=== PATIENT | female | born 1990 | race Caucasian/White ===

== ENCOUNTER 2016-02-27 16:35 | Emergency (ER) | payer OTHER ==
--- NOTE | 2016-02-27 18:28 | DIAGNOSTIC IMAGING REPORT ---
PROCEDURE: CT ABDOMEN/PELVIS W/O CONTRAST INDICATION: Hematuria and right flank pain. History of kidney stones. TECHNIQUE: Noncontrast axial images with sagittal and coronal reformations. COMPARISON: Comparison made to CT abdomen and pelvis on 11/12/2012. FINDINGS: ABDOMEN: There is mild right hydronephrosis and hydroureter secondary to a 2.5 mm calculus just above the right ureteral vesicle junction. There is a 0.5 mm nonobstructing calculus in the lower pole right kidney. There are two small 0.5 mm nonobstructing calculi in the mid lower pole left kidney. Left kidney and ureter are otherwise normal. Gallbladder, liver, spleen, pancreas, and aorta are normal. Bowel pattern is normal. Appendix is not clearly identified, but no evidence of inflammatory process. PELVIS: There is a 2.5 cm right paraovarian cyst (incidental finding) Uterus and adnexal structures are otherwise normal. No evidence of free fluid. IMPRESSION: 1. There is mild right hydronephrosis hydroureter secondary to a 2.5 mm calculus located just above the right ureteral vesicle junction. 2. There is a 0.5 mm nonobstructing calculus in the right kidney. 3. There are two 0.5 mm nonobstructing calculi in the left kidney. 4. There is a 2.5 cm right paraovarian cyst (incidental finding). 5. Findings discussed with KURT Ashton. All CT scans at this facility use dose modulation, iterative reconstruction, and/or weight-based dosing when appropriate to reduce radiation dose to as low as reasonably achievable.
--- NOTE | 2016-02-27 18:46 | ED NURSING NOTES ---
Clinical Report - Nurses [facility] [address] [place] [address] 02/27/2016 16:36 Patient: ADDIE PEARSON TRIAGE Triage time 16:41. Acuity: LEVEL 3. Chief Complaint: URGENCY and FREQUENCY and RIGHT-SIDED FLANK PAIN. --16:45 Joleen Gallegos R.N. 16:41 02/27/16. BP: 115/72. HR: 69. RR: 18. O2 saturation: 98%. Temp: 98.1 F. Pain level now: 09/14. --16:45 Joleen Gallegos R.N. Weight: 68 kg stated. Height/Length: 66 inches Per Patient. BMI: 24.2. --16:43 Joleen Gallegos R.N. Medications Naproxen Oral. Tylenol Oral. --16:42 Joleen Gallegos R.N. Allergies No Known Drug Allergy. --16:42 Joleen Gallegos R.N. History Arrived by private vehicle. Historian: patient. Primary physician (none, used to be [facility]). Treatment DIRECTOR OF PUBLIC SAFETY: None. SURGERY HX: No history of previous surgery. SOCIAL HX: Light tobacco smoker (cigarette)- less than 1/2 a pack per day. No alcohol use or drug use. FALL RISK ASSESSMENT: Fall risk assessment completed. No fall risk identified. FUNCTIONAL ASSESSMENT: Functional assessment: no impairments noted. LEARNING NEEDS ASSESSMENT: The learning needs assessment revealed no barriers. --16:45 Joleen Gallegos R.N. Onset. (3 days ago). --16:48 Joleen Gallegos R.N. PROBLEMS: Cough. Chest Wall Pain. Sinusitis. Migraine Headache. Nephrolithiasis. Pyelonephritis. . UTI - Urinary Tract Infection. Urinary Calculi. Diarrhea. Abdominal Pain. Gastroesophageal Reflux Disease. --16:43 Joleen Gallegos R.N. Interventions ID band on patient. To room. --16:45 Gallegos, Joleen, R.N. PHYSICAL ASSESSMENT 16:45 02/27/16. GENERAL / NEURO / PSYCH: Alert. Oriented X 4. Appears in pain. RESPIRATORY: Respirations not labored. --16:45 Joleen Gallegos R.N. NURSING PROGRESS NOTES 16:45 02/27/16. Patient identifiers checked. Call light placed in reach. Bed placed in lowest position. Patient ready for evaluation. --16:45 Joleen Gallegos R.N. 16:55 02/27/2016 Site #1 started via IV in the right antecubital space with an 20g angiocath, with aseptic technique and good blood return; one attempt. Blood drawn: rainbow set. Labeled in the presence of the patient and sent to the lab. Saline lock flushed with 10 mL saline. --17:05 Joleen Gallegos R.N. <<STRICKEN ENTRY-- 17:03 02/27/2016 Toradol IVP 30 mg given over 2 minute(s) via site #1. Allergies verified and confirmed 5 rights. --17:06 Joleen Gallegos R.N. --END STRIKE>> Correction. --17:06 Joleen Gallegos R.N. 17:05 02/27/2016 Toradol IVP 30 mg given over 2 minute(s) via site #1. Allergies verified and confirmed 5 rights. --17:06 Joleen Gallegos R.N. 17:07 02/27/2016 PHENERGAN (Promethazine HCl) IVP 12.5 mg given over 2 minute(s) via site #1. Allergies verified and confirmed 5 rights. (diluted in 10 mls NS). --17:07 Joleen Gallegos R.N. 18:31 02/27/2016 Started bag #1 1000 mL IV Fluids IV NS (Saline); bolus of 1000 mL wide open via site #1. Allergies verified and confirmed 5 rights. IV patency established. IV site checked: no pain, redness, or swelling. IV flushed thoroughly pre- and post-medication administration. --18:31 Ayanna Lee 18:32 02/27/2016 Started 2 gm of Ceftriaxone IVPB in bag #1 50 mL; at 100 mL/hr over 30 minute(s) via site #1; Allergies verified and confirmed 5 rights. --18:32 Ayanna Lee 19:04 02/27/16. BP: 90/54. HR: 46. RR: 16. O2 saturation: 100%. --19:04 Ayanna Lee 19:34 02/27/2016 IV Fluids IV NS Discontinued: bag #1 completed upon discharge. Total amount infused: 1000 mL. IV patency established. IV site checked: no pain, redness, or swelling. IV flushed thoroughly. --19:34 Ayanna Lee 19:35 02/27/2016 Ceftriaxone IVPB Discontinued: bag #1 completed upon discharge. Total amount infused: 50 mL. IV patency established. IV site checked: no pain, redness, or swelling. IV flushed thoroughly. --19:35 Ayanna Lee. DISPOSITION / DISCHARGE 19:35 02/27/2016 Site #1 removed upon discharge. Pressure dressing applied. --19:35 Ayanna Lee Departure time: 1934. Condition at departure: improved and stable. No learning barriers present. Discharge instructions provided and reviewed with the patient. Reviewed medication(s). Patient verbalized understanding. Written instructions provided in [place]. The patient was discharged by the physician health information assistant. She was discharged home and accompanied by endless track vehicle supervisor. She left the Emergency Department ambulatory and via private vehicle. Campaign Consultant driving. --19:36 Ayanna Lee 19:35 02/27/16. BP: 95/54. HR: 48. RR: 18. O2 saturation: 98%. Pain level now 5/10. --19:36 Ayanna Lee. Locked/Released at 02/27/2016 19:37 by Ayanna Lee,
--- NOTE | 2016-02-27 18:46 | ED NURSING NOTES ---
Clinical Report - Nurses [facility] [address] [place] [address] 02/27/2016 16:36 Patient: ADDIE PEARSON TRIAGE Triage time 16:41. Acuity: LEVEL 3. Chief Complaint: URGENCY and FREQUENCY and RIGHT-SIDED FLANK PAIN. --16:45 Joleen Gallegos R.N. 16:41 02/27/16. BP: 115/72. HR: 69. RR: 18. O2 saturation: 98%. Temp: 98.1 F. Pain level now: 09/14. --16:45 Joleen Gallegos R.N. Weight: 68 kg stated. Height/Length: 66 inches Per Patient. BMI: 24.2. --16:43 Joleen Gallegos R.N. Medications Naproxen Oral. Tylenol Oral. --16:42 Joleen Gallegos R.N. Allergies No Known Drug Allergy. --16:42 Joleen Gallegos R.N. History Arrived by private vehicle. Historian: patient. Primary physician (none, used to be Ainsley). Treatment TOW DRIVER: None. SURGERY HX: No history of previous surgery. SOCIAL HX: Light tobacco smoker (cigarette)- less than 1/2 a pack per day. No alcohol use or drug use. FALL RISK ASSESSMENT: Fall risk assessment completed. No fall risk identified. FUNCTIONAL ASSESSMENT: Functional assessment: no impairments noted. LEARNING NEEDS ASSESSMENT: The learning needs assessment revealed no barriers. --16:45 Joleen Gallegos R.N. Onset. (3 days ago). --16:48 Joleen Gallegos R.N. PROBLEMS: Cough. Chest Wall Pain. Sinusitis. Migraine Headache. Nephrolithiasis. Pyelonephritis. . UTI - Urinary Tract Infection. Urinary Calculi. Diarrhea. Abdominal Pain. Gastroesophageal Reflux Disease. --16:43 Joleen Gallegos R.N. Interventions ID band on patient. To room. --16:45 Gallegos, Joleen, R.N. PHYSICAL ASSESSMENT 16:45 02/27/16. GENERAL / NEURO / PSYCH: Alert. Oriented X 4. Appears in pain. RESPIRATORY: Respirations not labored. --16:45 Joleen Gallegos R.N. NURSING PROGRESS NOTES 16:45 02/27/16. Patient identifiers checked. Call light placed in reach. Bed placed in lowest position. Patient ready for evaluation. --16:45 Joleen Gallegos R.N. 16:55 02/27/2016 Site #1 started via IV in the right antecubital space with an 20g angiocath, with aseptic technique and good blood return; one attempt. Blood drawn: rainbow set. Labeled in the presence of the patient and sent to the lab. Saline lock flushed with 10 mL saline. --17:05 Joleen Gallegos R.N. <<STRICKEN ENTRY-- 17:03 02/27/2016 Toradol IVP 30 mg given over 2 minute(s) via site #1. Allergies verified and confirmed 5 rights. --17:06 Joleen Gallegos R.N. --END STRIKE>> Correction. --17:06 Joleen Gallegos R.N. 17:05 02/27/2016 Toradol IVP 30 mg given over 2 minute(s) via site #1. Allergies verified and confirmed 5 rights. --17:06 Joleen Gallegos R.N. 17:07 02/27/2016 PHENERGAN (Promethazine HCl) IVP 12.5 mg given over 2 minute(s) via site #1. Allergies verified and confirmed 5 rights. (diluted in 10 mls NS). --17:07 Joleen Gallegos R.N. 18:31 02/27/2016 Started bag #1 1000 mL IV Fluids IV NS (Saline); bolus of 1000 mL wide open via site #1. Allergies verified and confirmed 5 rights. IV patency established. IV site checked: no pain, redness, or swelling. IV flushed thoroughly pre- and post-medication administration. --18:31 Ayanna Lee 18:32 02/27/2016 Started 2 gm of Ceftriaxone IVPB in bag #1 50 mL; at 100 mL/hr over 30 minute(s) via site #1; Allergies verified and confirmed 5 rights. --18:32 Ayanna Lee 19:04 02/27/16. BP: 90/54. HR: 46. RR: 16. O2 saturation: 100%. --19:04 Ayanna Lee 19:34 02/27/2016 IV Fluids IV NS Discontinued: bag #1 completed upon discharge. Total amount infused: 1000 mL. IV patency established. IV site checked: no pain, redness, or swelling. IV flushed thoroughly. --19:34 Ayanna Lee 19:35 02/27/2016 Ceftriaxone IVPB Discontinued: bag #1 completed upon discharge. Total amount infused: 50 mL. IV patency established. IV site checked: no pain, redness, or swelling. IV flushed thoroughly. --19:35 Ayanna Lee. DISPOSITION / DISCHARGE 19:35 02/27/2016 Site #1 removed upon discharge. Pressure dressing applied. --19:35 Ayanna Lee Departure time: 1934. Condition at departure: improved and stable. No learning barriers present. Discharge instructions provided and reviewed with the patient. Reviewed medication(s). Patient verbalized understanding. Written instructions provided in [place]. The patient was discharged by the physician technical administrative assistant. She was discharged home and accompanied by grain mill products inspector. She left the Emergency Department ambulatory and via private vehicle. Cloud Solutions Architect driving. --19:36 Ayanna Lee 19:35 02/27/16. BP: 95/54. HR: 48. RR: 18. O2 saturation: 98%. Pain level now 5/10. --19:36 Ayanna Lee. Locked/Released at 02/27/2016 19:37 by Ayanna Lee,
--- NOTE | 2016-02-27 18:46 | ED CLINICAL REPORT ---
Clinical Report - Physicians/Mid Levels [facility] [address] [place] [address] 02/27/2016 16:36 [id number] Time Seen: 17:34 Feb 27 2016. Arrived- By private vehicle. Historian- patient. HISTORY OF PRESENT ILLNESS Chief Complaint: FLANK PAIN. It is described as "pain" and it is described as located in the right flank. 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 (Flank pain over the last 2-3 days, with fevers, nausea no emesis. No diarrhea. History of similar. Denies any recent travel. No recent antibiotics, history of the same with nephrolithiasis. No hematochezia . pain constant, not relieved by anything.). REVIEW OF SYSTEMS No constipation, black stools, difficulty with urination, pain with urination or sore throat. No blurred vision, chest pain or difficulty breathing. All systems otherwise negative, except as recorded above. SOCIAL HISTORY Smoker- current status unknown. No alcohol use or drug use. ADDITIONAL NOTES The nursing notes have been reviewed. PHYSICAL EXAM Vital Signs: 02/27/2016 16:41 BP: 115/72. HR: 69. RR: 18. O2 saturation: 98%. Temp: 98.1 F. Pain level now: 8/10. Appearance: Alert. Eyes: Eyes normal inspection. ENT: Ears normal. Neck: Normal inspection. Neck supple. CVS: Normal heart rate and rhythm. Heart sounds normal. Rhythm normal. No cardiac murmur. Respiratory: No respiratory distress. Breath sounds normal. No decreased air movement. Abdomen: Mild tenderness in the right side of the abdomen. No organomegaly. No mass. No obesity, rebound tenderness, femoral pulse deficit or guarding. The bowel sounds are not abnormal. Back: Normal inspection. No CVA tenderness. Skin: Skin warm. Normal skin color. LABS, X-RAYS, AND EKG Abdominal CT: IMPRESSION: 1. There is mild right hydronephrosis hydroureter secondary to a 2.5 mm calculus located just above the right ureteral vesicle junction. 2. There is a 0.5 mm nonobstructing calculus in the right kidney. 3. There are two 0.5 mm nonobstructing calculi in the left kidney. 4. There is a 2.5 cm right paraovarian cyst (incidental finding). 5. Findings discussed with KURT Ashton. All CT scans at this facility use dose modulation, iterative reconstruction, and/or weight-based dosing when appropriate to reduce radiation dose to as low as reasonably achievable. Electronically Final signed by:Nikolay Lindsey MD 02/27/2016 6:27:51 PM. Laboratory Tests: UA-Culture if indicated: (MAKENZIE: 02/27/2016 16:50) ( [facility] 02/27/2016 17:55) Final results Test Result Flag Units (Reference) URINE COLOR YELLOW URINE APPEARANCE CLEAR URINE GLUCOSE NEGATIVE (NEGATIVE) URINE BILIRUBIN NEGATIVE (NEGATIVE) URINE KETONE NEGATIVE (NEGATIVE) URINE SPECIFIC GRAVITY <= 1.005 L (1.010-1.030) URINE PH 6.5 (5.0-8.0) URINE PROTEIN NEGATIVE (NEGATIVE) URINE UROBILINOGEN 0.2 EU/dL (0.2-1.0) URINE NITRITE NEGATIVE (NEGATIVE) URINE BLOOD TRACE-LYSED (NEGATIVE) URINE LEUK ESTERASE NEGATIVE (NEGATIVE) URINE RBC 1-3 rbc/hpf (0-1) URINE WBC 0-1 wbc/hpf (0-1) URINE EPITHELIAL CELLS >15 EPI/hpf (0-5) URINE BACTERIA MANY (4+) (NONE SEEN) Urine: (MAKENZIE: 02/27/2016 16:50) ( [facility] 02/27/2016 17:28) Final results Test Result Flag Units (Reference) URINE NEGATIVE CBC w Diff: (MAKENZIE: 02/27/2016 16:56) ( [facility] 02/27/2016 17:14) Final results Test Result Flag Units (Reference) WHITE BLOOD COUNT 8.1 K/uL (4.5-11.5) RED BLOOD COUNT 5.35 H M/uL (4.00-5.20) HEMOGLOBIN 15.2 gm/dL (12.0-16.0) HEMATOCRIT 46.6 H % (36.0-46.0) MEAN CELL VOLUME 87 fL (80-100) MEAN CORPUSCULAR HGB 28 pg (26-34) MEAN CORPUSCULAR HGB CONC 33 g/dL (31-37) RED CELL DISTRIBUTION WIDTH 13.5 % (11.6-14.8) PLATELET COUNT 252 K/uL (150-400) NEUTROPHIL % 59.5 % (50-75) LYMPH % 31.3 % (25-40) MONO % 6.8 % (3-14) EOSINOPHIL % 1.7 % (0-4) BASOPHIL % 0.7 % (0-2) CMP: (MAKENZIE: 02/27/2016 16:56) ( [facility] 02/27/2016 17:31) Final results Test Result Flag Units (Reference) GLUCOSE 70 mg/dL (70-110) BUN 8 mg/dL (7-18) CREATININE 0.8 mg/dL (0.6-1.3) Estimated GFR >60 mL/min Estimated GFR- >60 mL/min Note: Persistent reduction over 3 months in eGFR<60 mL/min/1.73 m2 defines CKD. Patients with eGFR values>=60 mL/min/1.73 m2 may also have CKD if evidence ofpersistent proteinuria. Additional information may be foundat www.kidney.org. SODIUM 145 mmol/L (136-145) POTASSIUM 3.3 L mmol/L (3.5-5.1) CHLORIDE 105 mmol/L (98-107) CARBON DIOXIDE 30 mmol/L (21-32) CALCIUM 9.1 mg/dL (8.5-10.1) TOTAL PROTEIN 7.9 g/dL (6.4-8.2) ALBUMIN 4.8 g/dL (3.3-5.0) BILIRUBIN, TOTAL 0.5 mg/dL (0.0-1.0) ALKALINE PHOSPHATASE 61 U/L (46-116) AST (SGOT) 11 L U/L (15-37) ALT (SGPT) 26 U/L (12-78) . PROGRESS AND PROCEDURES Course of Care: pt in the er with toradol that has relieved her pain . Pt is afebrile. mild pain anterior. Urine sample is contaminated with some signs of infectious process, and some hematuria . Afebrile. Patient is stable. Patient/family counseled. Differential Diagnosis: I considered gastritis, acute appendicitis, diverticulitis, urinary tract infection, cystitis, prostatitis, ureterolithiasis, urinary obstruction, ovarian cyst, ovarian torsion, , ectopic , pelvic inflammatory disease and pelvic abscess as a possible cause of abdominal pain in this patient. This is a partial list of diagnoses considered. Disposition: Discharged. Condition: good. CLINICAL IMPRESSION Right renal colic with calculus with urinary tract infection. INSTRUCTIONS Drink plenty of fluids. ([facility] urology: [phone]). Warnings: Further evaluation is necessary. Prescription Medications: Hydrocodone/APAP 5mg / 325mg: take 1 orally every 6 hours as needed for pain. Dispense fifteen (15). No refill. Zofran (orally disintegrating tablets) 4 mg: take 1 orally every 6 hours for 3 days as needed for nausea. Dispense ten (10). No refill. Substitution is permissible. Cephalexin 500 mg: take 1 capsule orally for 10 days. No refill. Flomax 0.4 mg: take 1 orally every 24 hours. Dispense ten (10). No refills. Follow-up: Follow up with your doctor in three days. Understanding of the discharge instructions verbalized by patient. (Electronically signed by Alicja Oakes P.A.-C 02/27/2016 19:39)
--- NOTE | 2016-02-27 18:46 | ED CLINICAL REPORT ---
Clinical Report - Physicians/Mid Levels [facility] [address] [place] [address] 02/27/2016 16:36 [id number] Time Seen: 17:34 Feb 27 2016. Arrived- By private vehicle. Historian- patient. HISTORY OF PRESENT ILLNESS Chief Complaint: FLANK PAIN. It is described as "pain" and it is described as located in the right flank. 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 (Flank pain over the last 2-3 days, with fevers, nausea no emesis. No diarrhea. History of similar. Denies any recent travel. No recent antibiotics, history of the same with nephrolithiasis. No hematochezia . pain constant, not relieved by anything.). REVIEW OF SYSTEMS No constipation, black stools, difficulty with urination, pain with urination or sore throat. No blurred vision, chest pain or difficulty breathing. All systems otherwise negative, except as recorded above. SOCIAL HISTORY Smoker- current status unknown. No alcohol use or drug use. ADDITIONAL NOTES The nursing notes have been reviewed. PHYSICAL EXAM Vital Signs: 02/27/2016 16:41 BP: 115/72. HR: 69. RR: 18. O2 saturation: 98%. Temp: 98.1 F. Pain level now: 8/10. Appearance: Alert. Eyes: Eyes normal inspection. ENT: Ears normal. Neck: Normal inspection. Neck supple. CVS: Normal heart rate and rhythm. Heart sounds normal. Rhythm normal. No cardiac murmur. Respiratory: No respiratory distress. Breath sounds normal. No decreased air movement. Abdomen: Mild tenderness in the right side of the abdomen. No organomegaly. No mass. No obesity, rebound tenderness, femoral pulse deficit or guarding. The bowel sounds are not abnormal. Back: Normal inspection. No CVA tenderness. Skin: Skin warm. Normal skin color. LABS, X-RAYS, AND EKG Abdominal CT: IMPRESSION: 1. There is mild right hydronephrosis hydroureter secondary to a 2.5 mm calculus located just above the right ureteral vesicle junction. 2. There is a 0.5 mm nonobstructing calculus in the right kidney. 3. There are two 0.5 mm nonobstructing calculi in the left kidney. 4. There is a 2.5 cm right paraovarian cyst (incidental finding). 5. Findings discussed with KURT Ashton. All CT scans at this facility use dose modulation, iterative reconstruction, and/or weight-based dosing when appropriate to reduce radiation dose to as low as reasonably achievable. Electronically Final signed by:Nikolay Lindsey MD 02/27/2016 6:27:51 PM. Laboratory Tests: UA-Culture if indicated: (MAKENZIE: 02/27/2016 16:50) ( [facility] 02/27/2016 17:55) Final results Test Result Flag Units (Reference) URINE COLOR YELLOW URINE APPEARANCE CLEAR URINE GLUCOSE NEGATIVE (NEGATIVE) URINE BILIRUBIN NEGATIVE (NEGATIVE) URINE KETONE NEGATIVE (NEGATIVE) URINE SPECIFIC GRAVITY <= 1.005 L (1.010-1.030) URINE PH 6.5 (5.0-8.0) URINE PROTEIN NEGATIVE (NEGATIVE) URINE UROBILINOGEN 0.2 EU/dL (0.2-1.0) URINE NITRITE NEGATIVE (NEGATIVE) URINE BLOOD TRACE-LYSED (NEGATIVE) URINE LEUK ESTERASE NEGATIVE (NEGATIVE) URINE RBC 1-3 rbc/hpf (0-1) URINE WBC 0-1 wbc/hpf (0-1) URINE EPITHELIAL CELLS >15 EPI/hpf (0-5) URINE BACTERIA MANY (4+) (NONE SEEN) Urine: (MAKENZIE: 02/27/2016 16:50) ( [facility] 02/27/2016 17:28) Final results Test Result Flag Units (Reference) URINE NEGATIVE CBC w Diff: (MAKENZIE: 02/27/2016 16:56) ( [facility] 02/27/2016 17:14) Final results Test Result Flag Units (Reference) WHITE BLOOD COUNT 8.1 K/uL (4.5-11.5) RED BLOOD COUNT 5.35 H M/uL (4.00-5.20) HEMOGLOBIN 15.2 gm/dL (12.0-16.0) HEMATOCRIT 46.6 H % (36.0-46.0) MEAN CELL VOLUME 87 fL (80-100) MEAN CORPUSCULAR HGB 28 pg (26-34) MEAN CORPUSCULAR HGB CONC 33 g/dL (31-37) RED CELL DISTRIBUTION WIDTH 13.5 % (11.6-14.8) PLATELET COUNT 252 K/uL (150-400) NEUTROPHIL % 59.5 % (50-75) LYMPH % 31.3 % (25-40) MONO % 6.8 % (3-14) EOSINOPHIL % 1.7 % (0-4) BASOPHIL % 0.7 % (0-2) CMP: (MAKENZIE: 02/27/2016 16:56) ( MsgRcvd 02/27/2016 17:31) Final results Test Result Flag Units (Reference) GLUCOSE 70 mg/dL (70-110) BUN 8 mg/dL (7-18) CREATININE 0.8 mg/dL (0.6-1.3) Estimated GFR >60 mL/min Estimated GFR- >60 mL/min Note: Persistent reduction over 3 months in eGFR<60 mL/min/1.73 m2 defines CKD. Patients with eGFR values>=60 mL/min/1.73 m2 may also have CKD if evidence ofpersistent proteinuria. Additional information may be foundat www.kidney.org. SODIUM 145 mmol/L (136-145) POTASSIUM 3.3 L mmol/L (3.5-5.1) CHLORIDE 105 mmol/L (98-107) CARBON DIOXIDE 30 mmol/L (21-32) CALCIUM 9.1 mg/dL (8.5-10.1) TOTAL PROTEIN 7.9 g/dL (6.4-8.2) ALBUMIN 4.8 g/dL (3.3-5.0) BILIRUBIN, TOTAL 0.5 mg/dL (0.0-1.0) ALKALINE PHOSPHATASE 61 U/L (46-116) AST (SGOT) 11 L U/L (15-37) ALT (SGPT) 26 U/L (12-78) . PROGRESS AND PROCEDURES Course of Care: pt in the er with toradol that has relieved her pain . Pt is afebrile. mild pain anterior. Urine sample is contaminated with some signs of infectious process, and some hematuria . Afebrile. Patient is stable. Patient/family counseled. Differential Diagnosis: I considered gastritis, acute appendicitis, diverticulitis, urinary tract infection, cystitis, prostatitis, ureterolithiasis, urinary obstruction, ovarian cyst, ovarian torsion, , ectopic , pelvic inflammatory disease and pelvic abscess as a possible cause of abdominal pain in this patient. This is a partial list of diagnoses considered. Disposition: Discharged. Condition: good. CLINICAL IMPRESSION Right renal colic with calculus with urinary tract infection. INSTRUCTIONS Drink plenty of fluids. ([facility] urology: [phone]). Warnings: Further evaluation is necessary. Prescription Medications: Hydrocodone/APAP 5mg / 325mg: take 1 orally every 6 hours as needed for pain. Dispense fifteen (15). No refill. Zofran (orally disintegrating tablets) 4 mg: take 1 orally every 6 hours for 3 days as needed for nausea. Dispense ten (10). No refill. Substitution is permissible. Cephalexin 500 mg: take 1 capsule orally for 10 days. No refill. Flomax 0.4 mg: take 1 orally every 24 hours. Dispense ten (10). No refills. Follow-up: Follow up with your doctor in three days. Understanding of the discharge instructions verbalized by patient. (Electronically signed by Alicja Oakes P.A.-C 02/27/2016 19:39)
--- NOTE | 2016-02-27 18:46 | ED ORDER SUMMARY ---
..... Patient: ADDIE PEARSON OrderSheet [facility] VisitID: [id number] [place] [address] 25y, F Registration Date/Time: 02/27/2016 ORDER SHEET Weight: 68.0 kg (stated) Allergies: No Known Drug Allergy GENERAL ORDERS: CBC w Diff Urgent (16:59 02/27/2016 EKoroleva P.A.-C) (Ack 17:03 LMuller) (17:03 LMuller) CMP Urgent (16:59 02/27/2016 EKoroleva P.A.-C) (Ack 17:03 LMuller) (17:03 LMuller) UA-Culture if indicated Urgent (16:59 02/27/2016 EKoroleva P.A.-C) (Ack 17:03 LMuller) (17:03 LMuller) Urine Urgent (16:59 02/27/2016 EKoroleva P.A.-C) (Ack 17:03 LMuller) (17:03 LMuller) CT Abd/Pel wo Cont Urgent (17:32 02/27/2016 EKoroleva P.A.-C) (Ack 17:37 LMuller) (18:13 Sylvia) MEDICATION ORDERS: Phenergan IV 12.5 mg (HIGH ALERT MEDICATION, NOW) (16:59 02/27/2016 EKoroleva P.A.-C) (17:07 LSullivan R.N.) IV FLUIDS: IV Saline Lock (16:58 02/27/2016 LSullivan R.N. verbal order read back to EKoroleva P.A.-C) (17:05 LSullivan R.N.) Toradol IV 30 mg (NOW) (16:59 02/27/2016 EKoroleva P.A.-C) (17:06 LSullivan R.N.) IV Saline Lock (16:59 02/27/2016 EKoroleva P.A.-C) (Cancelled: Other16:59 EKoroleva P.A.-C) IV NS : initial bolus 1000 mL (1000 mL/hr), then 100 mL/hr for X1 (NOW); Carlos (18:23 02/27/2016 Dipti ManuelA.-C) (18:31 [facility]) Ceftriaxone IV 2 gm/50mL (NOW) (18:24 02/27/2016 Dipti An.A.-C) (18:32 [facility]) ORDER SHEET NOTES: [Electronically signed by Ayanna Lee (19:37 02/27/2016)] [Electronically signed by Alicja Oakes P.A.-C (19:39 02/27/2016)] [Electronically locked/signed by Ayanna Lee (19:37 02/27/2016)]
--- NOTE | 2016-02-27 18:46 | ED ORDER SUMMARY ---
..... Patient: ADDIE PEARSON OrderSheet [facility] VisitID: [id number] [place] [address] 25y, F Registration Date/Time: 02/27/2016 ORDER SHEET Weight: 68.0 kg (stated) Allergies: No Known Drug Allergy GENERAL ORDERS: CBC w Diff Urgent (16:59 02/27/2016 EKoroleva P.A.-C) (Ack 17:03 LMuller) (17:03 LMuller) CMP Urgent (16:59 02/27/2016 EKoroleva P.A.-C) (Ack 17:03 LMuller) (17:03 LMuller) UA-Culture if indicated Urgent (16:59 02/27/2016 EKoroleva P.A.-C) (Ack 17:03 LMuller) (17:03 LMuller) Urine Urgent (16:59 02/27/2016 EKoroleva P.A.-C) (Ack 17:03 LMuller) (17:03 LMuller) CT Abd/Pel wo Cont Urgent (17:32 02/27/2016 EKoroleva P.A.-C) (Ack 17:37 LMuller) (18:13 Sylvia) MEDICATION ORDERS: Phenergan IV 12.5 mg (HIGH ALERT MEDICATION, NOW) (16:59 02/27/2016 EKoroleva P.A.-C) (17:07 LSullivan R.N.) IV FLUIDS: IV Saline Lock (16:58 02/27/2016 LSullivan R.N. verbal order read back to EKoroleva P.A.-C) (17:05 LSullivan R.N.) Toradol IV 30 mg (NOW) (16:59 02/27/2016 EKoroleva P.A.-C) (17:06 LSullivan R.N.) IV Saline Lock (16:59 02/27/2016 EKoroleva P.A.-C) (Cancelled: Other16:59 EKoroleva P.A.-C) IV NS : initial bolus 1000 mL (1000 mL/hr), then 100 mL/hr for X1 (NOW); Carlos (18:23 02/27/2016 Dipti ManuelA.-C) (18:31 [facility]) Ceftriaxone IV 2 gm/50mL (NOW) (18:24 02/27/2016 Dipti An.A.-C) (18:32 [facility]) ORDER SHEET NOTES: [Electronically signed by Ayanna Lee (19:37 02/27/2016)] [Electronically signed by Alicja Oakes P.A.-C (19:39 02/27/2016)] [Electronically locked/signed by Ayanna Lee (19:37 02/27/2016)]
--- NOTE | 2016-02-27 19:40 | ED MED RECONCILIATION SUMMARY ---
Patient: ADDIE PERASON Medication Reconciliation Report [facility] VisitID: [id number] [place] [address] 25y, F Registration Date/Time: 02/27/2016 Weight: 68.0 kg Height/Length: 66 in. BMI: 24.2 ALLERGIES: No Known Drug Allergy The patient's Home Medications are listed below: THE FOLLOWING MEDICATIONS NEED TO BE RECONCILED: Naproxen Oral Tylenol Oral The source(s) of the original Home Medication information: Not obtained. The following Medications were given to the patient in the Emergency Department: Toradol [IVP] IVP 30 mg, administered: 02/27/2016 5:05:00 PM PHENERGAN [IVP] IVP 12.5 mg, administered: 02/27/2016 5:07:00 PM IV NS IV Fluids bolus 1000 mL wide open, administered: 02/27/2016 6:31:00 PM Ceftriaxone [IVPB] IVPB bolus 0, then 2 gm 100 mL/hr, administered: 02/27/2016 6:32:00 PM The following Medications were prescribed to the patient: Hydrocodone/APAP 5mg / 325mg: take 1 orally every 6 hours as needed for pain. Dispense fifteen (15). No refill. -- Alicja Oakes, P.A.-C Zofran (orally disintegrating tablets) 4 mg: take 1 orally every 6 hours for 3 days as needed for nausea. Dispense ten (10). No refill. Substitution is permissible. -- Alicja Oakes, P.A.-C Cephalexin 500 mg: take 1 capsule orally for 10 days. No refill. -- Alicja Oakes, P.A.-C Flomax 0.4 mg: take 1 orally every 24 hours. Dispense ten (10). No refills. -- Alicja Oakes, P.A.-C
--- NOTE | 2016-02-27 19:40 | ED DISCHARGE INSTRUCTIONS ---
Patient: ADDIE PEARSON General Instructions [facility] VisitID: [id number] [place] [address] 25y, F Registration Date/Time: 02/27/2016 Right renal colic with calculus with urinary tract infection. INSTRUCTIONS Drink plenty of fluids. ([facility]: [phone]). Warnings: Further evaluation is necessary. Prescription Medications: Hydrocodone/APAP 5mg / 325mg: take 1 orally every 6 hours as needed for pain. Dispense fifteen (15). No refill. Zofran (orally disintegrating tablets) 4 mg: take 1 orally every 6 hours for 3 days as needed for nausea. Dispense ten (10). No refill. Substitution is permissible. Cephalexin 500 mg: take 1 capsule orally for 10 days. No refill. Flomax 0.4 mg: take 1 orally every 24 hours. Dispense ten (10). No refills. Follow-up: Follow up with your doctor in three days. Understanding of the discharge instructions verbalized by patient. ADDITIONAL INFORMATION Kidney Stone (W/ Colic) The sharp cramping pain and nausea/vomiting that you have is due to a small stone which has formed in the kidney and is now passing down a narrow tube (ureter) on its way to your bladder. Once it reaches your bladder, the pain will stop. The stone may pass in your urine stream in one piece. [The size may be 1/16" to 1/4" (1-6mm)]. Or, the stone may also break up into rose marie fragments which you may not even notice. Once you have had a kidney stone, you are at risk for developing another one in the future. Home Care: Drink plenty of fluids (at least 8 to 10 glasses of water a day). Most stones will pass on their own, but may take from a few hours to a few days. Sometimes the stone is too large to pass by itself and special methods will have to be used to remove the stone. Each time you urinate, do so in a jar. Pour the urine from the jar through the strainer and into the toilet. Continue doing this until 24 hours after your pain stops. By then, if there was a kidney stone, it should pass from your bladder. Some stones dissolve into sand-like particles and pass right through the strainer. In that case, you wont ever see a stone. Save any stone that you find in the strainer and bring it to your doctor for analysis. It may be possible to prevent certain types of stones from forming. Therefore, it is important to know what kind of stone you have. Try to stay as active as possible since this will help the stone pass. Do not stay in bed unless your pain prevents you from getting up. You may notice a red, pink or brown color to your urine. This is normal while passing a kidney stone. Follow Up with your doctor or return to this facility if the pain lasts more than 48 hours. Get Prompt Medical Attention if any of the following occur: Pain that is not controlled by the medicine given Repeated vomiting or unable to keep down fluids Weakness, dizziness or fainting Fever of 100.4F (38C) or higher, or as directed by your healthcare provider Passage of solid red or brown urine (can't see through it) or urine with lots of blood clots Unable to pass urine for 8 hours and increasing bladder pressure Bladder Infection,Female (Adult) A bladder infection ("cystitis" or "UTI") usually causes a constant urge to urinate and a burning when passing urine. Urine may be cloudy, smelly or dark. There may be pain in the lower abdomen. A bladder infection occurs when bacteria from the vaginal area enter the bladder opening (urethra). This can occur from sexual intercourse, wearing tight clothing, dehydration and other factors. Home Care: Drink lots of fluids (at least 6-8 glasses a day, unless you must restrict fluids for other medical reasons). This will force the medicine into your urinary system and flush the bacteria out of your body. Avoid sexual intercourse until your symptoms are gone. Avoid caffeine, alcohol and spicy foods. These can irritate the bladder. A bladder infection is treated with antibiotics. You may also be given Pyridium (generic = phenazopyridine) to reduce the burning sensation. This medicine will cause your urine to become a bright orange color. The orange urine may stain clothing. You may wear a pad or panty-liner to protect clothing. Preventing Future Infections: Always wipe from front to back after a bowel movement. Keep the genital area clean and dry. Drink plenty of fluids each day to avoid dehydration. Both sexual partners should wash before intercourse. Urinate right after intercourse to flush out the bladder. Wear cotton underwear and cotton-lined panty hose; avoid tight-fitting pants. If you are on control pills and are having frequent bladder infections, discuss with your doctor. Follow Up: Return to this facility or see your doctor if ALL symptoms are not gone after three days of treatment. Get Prompt Medical Attention if any of the following occur: Fever of 100.4F (38C) or higher, or as directed by your healthcare provider No improvement by the third day of treatment Increasing back or abdominal pain Repeated vomiting; unable to keep medicine down Weakness, dizziness or fainting Vaginal discharge Pain, redness or swelling in the labia (outer vaginal area) Hydrocodone Bitartrate, Acetaminophen Oral tablet What is this medicine? ACETAMINOPHEN; HYDROCODONE (a set a BASIL elda fen; radha droe KOE done) is a pain reliever. It is used to treat mild to moderate pain. How should I use this medicine? Take this medicine by mouth. Swallow it with a full glass of water. Follow the directions on the prescription label. If the medicine upsets your stomach, take the medicine with food or milk. Do not take more than you are told to take. Talk to your vessel builder regarding the use of this medicine in children. This medicine is not approved for use in children. What side effects may I notice from receiving this medicine? Side effects that you should report to your doctor or health home day care provider as soon as possible: allergic reactions like skin rash, itching or hives, swelling of the face, lips, or tongue breathing problems confusion feeling faint or lightheaded, falls stomach pain yellowing of the eyes or skin Side effects that usually do not require medical attention (report to your doctor or health home day care provider if they continue or are bothersome): nausea, vomiting stomach upset What may interact with this medicine? alcohol antihistamines isoniazid medicines for depression, anxiety, or psychotic disturbances medicines for sleep muscle relaxants naltrexone narcotic medicines (opiates) for pain phenobarbital ritonavir tramadol What if I miss a dose? If you miss a dose, take it as soon as you can. If it is almost time for your next dose, take only that dose. Do not take double or extra doses. Where should I keep my medicine? Keep out of the reach of children. This medicine can be abused. Keep your medicine in a safe place to protect it from theft. Do not share this medicine with anyone. Selling or giving away this medicine is dangerous and against the law. Store at room temperature between 15 and 30 degrees C (59 and 86 degrees F). Protect from light. Keep container tightly closed. Throw away any unused medicine after the expiration date. Discard unused medicine and used packaging carefully. Pets and children can be harmed if they find used or lost packages. What should I tell my health care provider before I take this medicine? They need to know if you have any of these conditions: brain tumor Crohn's disease, inflammatory bowel disease, or ulcerative colitis drink more than 3 alcohol-containing drinks per day drug abuse or addiction head injury heart or circulation problems kidney disease or problems going to the bathroom liver disease lung disease, asthma, or breathing problems an unusual or allergic reaction to acetaminophen, hydrocodone, other opioid analgesics, other medicines, foods, dyes, or preservatives or trying to get breast-feeding What should I watch for while using this medicine? Tell your doctor or health home day care provider if your pain does not go away, if it gets worse, or if you have new or a different type of pain. You may develop tolerance to the medicine. Tolerance means that you will need a higher dose of the medicine for pain relief. Tolerance is normal and is expected if you take the medicine for a long time. Do not suddenly stop taking your medicine because you may develop a severe reaction. Your body becomes used to the medicine. This does NOT mean you are addicted. Addiction is a behavior related to getting and using a drug for a non-medical reason. If you have pain, you have a medical reason to take pain medicine. Your doctor will tell you how much medicine to take. If your doctor wants you to stop the medicine, the dose will be slowly lowered over time to avoid any side effects. You may get drowsy or dizzy when you first start taking the medicine or change doses. Do not drive, use machinery, or do anything that may be dangerous until you know how the medicine affects you. Stand or sit up slowly. There are different types of narcotic medicines (opiates) for pain. If you take more than one type at the same time, you may have more side effects. Give your health care provider a list of all medicines you use. Your doctor will tell you how much medicine to take. Do not take more medicine than directed. Call emergency for help if you have problems breathing. The medicine will cause constipation. Try to have a bowel movement at least every 2 to 3 days. If you do not have a bowel movement for 3 days, call your doctor or health home day care provider. Too much acetaminophen can be very dangerous. Do not take Tylenol (acetaminophen) or medicines that contain acetaminophen with this medicine. Many non-prescription medicines contain acetaminophen. Always read the labels carefully. Ondansetron Hydrochloride Oral tablet What is this medicine? ONDANSETRON (on KWADWO se ariella) is used to treat nausea and vomiting caused by chemotherapy. It is also used to prevent or treat nausea and vomiting after surgery. How should I use this medicine? Take this medicine by mouth with a glass of water. Follow the directions on your prescription label. Take your doses at regular intervals. Do not take your medicine more often than directed. Talk to your vessel builder regarding the use of this medicine in children. Special care may be needed. What side effects may I notice from receiving this medicine? Side effects that you should report to your doctor or health home day care provider as soon as possible: allergic reactions like skin rash, itching or hives, swelling of the face, lips or tongue breathing problems dizziness fast or irregular heartbeat feeling faint or lightheaded, falls fever and chills swelling of the hands or feet tightness in the chest Side effects that usually do not require medical attention (report to your doctor or health home day care provider if they continue or are bothersome): constipation or diarrhea headache What may interact with this medicine? Do not take this medicine with any of the following medications: -apomorphine -cisapride -dofetilide -dronedarone -pimozide -thioridazine -ziprasidone This medicine may also interact with the following medications: -carbamazepine -phenytoin -rifampicin -tramadol -other medicines that prolong the QT interval (cause an abnormal heart rhythm) What if I miss a dose? If you miss a dose, take it as soon as you can. If it is almost time for your next dose, take only that dose. Do not take double or extra doses. Where should I keep my medicine? Keep out of the reach of children. Store between 2 and 30 degrees C (36 and 86 degrees F). Throw away any unused medicine after the expiration date. What should I tell my health care provider before I take this medicine? They need to know if you have any of these conditions: heart disease history of irregular heartbeat liver disease low levels of magnesium or potassium in the blood an unusual or allergic reaction to ondansetron, granisetron, other medicines, foods, dyes, or preservatives or trying to get breast-feeding What should I watch for while using this medicine? Check with your doctor or health home day care provider right away if you have any sign of an allergic reaction. Ondansetron Oral disintegrating tablet What is this medicine? ONDANSETRON (on KWADWO se ariella) is used to treat nausea and vomiting caused by chemotherapy. It is also used to prevent or treat nausea and vomiting after surgery. How should I use this medicine? These tablets are made to dissolve in the mouth. Do not try to push the tablet through the foil backing. With dry hands, peel away the foil backing and gently remove the tablet. Place the tablet in the mouth and allow it to dissolve, then swallow. While you may take these tablets with water, it is not necessary to do so. Talk to your vessel builder regarding the use of this medicine in children. Special care may be needed. What side effects may I notice from receiving this medicine? Side effects that you should report to your doctor or health home day care provider as soon as possible: allergic reactions like skin rash, itching or hives, swelling of the face, lips, or tongue breathing problems dizziness fast or irregular heartbeat feeling faint or lightheaded, falls fever and chills swelling of the hands and feet tightness in the chest Side effects that usually do not require medical attention (report to your doctor or health home day care provider if they continue or are bothersome): constipation or diarrhea headache What may interact with this medicine? Do not take this medicine with any of the following medications: -apomorphine -cisapride -dofetilide -dronedarone -pimozide -thioridazine -ziprasidone This medicine may also interact with the following medications: -carbamazepine -phenytoin -rifampicin -tramadol -other medicines that prolong the QT interval (cause an abnormal heart rhythm) What if I miss a dose? If you miss a dose, take it as soon as you can. If it is almost time for your next dose, take only that dose. Do not take double or extra doses. Where should I keep my medicine? Keep out of the reach of children. Store between 2 and 30 degrees C (36 and 86 degrees F). Throw away any unused medicine after the expiration date. What should I tell my health care provider before I take this medicine? They need to know if you have any of these conditions: heart disease history of irregular heartbeat liver disease low levels of magnesium or potassium in the blood an unusual or allergic reaction to ondansetron, granisetron, other medicines, foods, dyes, or preservatives or trying to get breast-feeding What should I watch for while using this medicine? Check with your doctor or health home day care provider as soon as you can if you have any sign of an allergic reaction. You have been given the following additional information: Kidney Stone W/ Colic Bladder Infection, Female (Adult) Hydrocodone Bitartrate, Acetaminophen Oral tablet Ondansetron Hydrochloride Oral tablet Ondansetron Oral disintegrating tablet (Electronically signed by Alicja Oakes P.A.-C 02/27/2016 19:39)
--- NOTE | 2016-02-27 19:40 | ED DISCHARGE INSTRUCTIONS ---
Patient: ADDIE PEARSON General Instructions [facility] VisitID: [id number] [place] [address] 25y, F Registration Date/Time: 02/27/2016 Right renal colic with calculus with urinary tract infection. INSTRUCTIONS Drink plenty of fluids. ([facility]: [phone]). Warnings: Further evaluation is necessary. Prescription Medications: Hydrocodone/APAP 5mg / 325mg: take 1 orally every 6 hours as needed for pain. Dispense fifteen (15). No refill. Zofran (orally disintegrating tablets) 4 mg: take 1 orally every 6 hours for 3 days as needed for nausea. Dispense ten (10). No refill. Substitution is permissible. Cephalexin 500 mg: take 1 capsule orally for 10 days. No refill. Flomax 0.4 mg: take 1 orally every 24 hours. Dispense ten (10). No refills. Follow-up: Follow up with your doctor in three days. Understanding of the discharge instructions verbalized by patient. ADDITIONAL INFORMATION Kidney Stone (W/ Colic) The sharp cramping pain and nausea/vomiting that you have is due to a small stone which has formed in the kidney and is now passing down a narrow tube (ureter) on its way to your bladder. Once it reaches your bladder, the pain will stop. The stone may pass in your urine stream in one piece. [The size may be 1/16" to 1/4" (1-6mm)]. Or, the stone may also break up into rose marie fragments which you may not even notice. Once you have had a kidney stone, you are at risk for developing another one in the future. Home Care: Drink plenty of fluids (at least 8 to 10 glasses of water a day). Most stones will pass on their own, but may take from a few hours to a few days. Sometimes the stone is too large to pass by itself and special methods will have to be used to remove the stone. Each time you urinate, do so in a jar. Pour the urine from the jar through the strainer and into the toilet. Continue doing this until 24 hours after your pain stops. By then, if there was a kidney stone, it should pass from your bladder. Some stones dissolve into sand-like particles and pass right through the strainer. In that case, you wont ever see a stone. Save any stone that you find in the strainer and bring it to your doctor for analysis. It may be possible to prevent certain types of stones from forming. Therefore, it is important to know what kind of stone you have. Try to stay as active as possible since this will help the stone pass. Do not stay in bed unless your pain prevents you from getting up. You may notice a red, pink or brown color to your urine. This is normal while passing a kidney stone. Follow Up with your doctor or return to this facility if the pain lasts more than 48 hours. Get Prompt Medical Attention if any of the following occur: Pain that is not controlled by the medicine given Repeated vomiting or unable to keep down fluids Weakness, dizziness or fainting Fever of 100.4F (38C) or higher, or as directed by your healthcare provider Passage of solid red or brown urine (can't see through it) or urine with lots of blood clots Unable to pass urine for 8 hours and increasing bladder pressure Bladder Infection,Female (Adult) A bladder infection ("cystitis" or "UTI") usually causes a constant urge to urinate and a burning when passing urine. Urine may be cloudy, smelly or dark. There may be pain in the lower abdomen. A bladder infection occurs when bacteria from the vaginal area enter the bladder opening (urethra). This can occur from sexual intercourse, wearing tight clothing, dehydration and other factors. Home Care: Drink lots of fluids (at least 6-8 glasses a day, unless you must restrict fluids for other medical reasons). This will force the medicine into your urinary system and flush the bacteria out of your body. Avoid sexual intercourse until your symptoms are gone. Avoid caffeine, alcohol and spicy foods. These can irritate the bladder. A bladder infection is treated with antibiotics. You may also be given Pyridium (generic = phenazopyridine) to reduce the burning sensation. This medicine will cause your urine to become a bright orange color. The orange urine may stain clothing. You may wear a pad or panty-liner to protect clothing. Preventing Future Infections: Always wipe from front to back after a bowel movement. Keep the genital area clean and dry. Drink plenty of fluids each day to avoid dehydration. Both sexual partners should wash before intercourse. Urinate right after intercourse to flush out the bladder. Wear cotton underwear and cotton-lined panty hose; avoid tight-fitting pants. If you are on control pills and are having frequent bladder infections, discuss with your doctor. Follow Up: Return to this facility or see your doctor if ALL symptoms are not gone after three days of treatment. Get Prompt Medical Attention if any of the following occur: Fever of 100.4F (38C) or higher, or as directed by your healthcare provider No improvement by the third day of treatment Increasing back or abdominal pain Repeated vomiting; unable to keep medicine down Weakness, dizziness or fainting Vaginal discharge Pain, redness or swelling in the labia (outer vaginal area) Hydrocodone Bitartrate, Acetaminophen Oral tablet What is this medicine? ACETAMINOPHEN; HYDROCODONE (a set a BASIL elda fen; radha droe KOE done) is a pain reliever. It is used to treat mild to moderate pain. How should I use this medicine? Take this medicine by mouth. Swallow it with a full glass of water. Follow the directions on the prescription label. If the medicine upsets your stomach, take the medicine with food or milk. Do not take more than you are told to take. Talk to your wire wrapper machine operator regarding the use of this medicine in children. This medicine is not approved for use in children. What side effects may I notice from receiving this medicine? Side effects that you should report to your doctor or health professional healthcare representative as soon as possible: allergic reactions like skin rash, itching or hives, swelling of the face, lips, or tongue breathing problems confusion feeling faint or lightheaded, falls stomach pain yellowing of the eyes or skin Side effects that usually do not require medical attention (report to your doctor or health professional healthcare representative if they continue or are bothersome): nausea, vomiting stomach upset What may interact with this medicine? alcohol antihistamines isoniazid medicines for depression, anxiety, or psychotic disturbances medicines for sleep muscle relaxants naltrexone narcotic medicines (opiates) for pain phenobarbital ritonavir tramadol What if I miss a dose? If you miss a dose, take it as soon as you can. If it is almost time for your next dose, take only that dose. Do not take double or extra doses. Where should I keep my medicine? Keep out of the reach of children. This medicine can be abused. Keep your medicine in a safe place to protect it from theft. Do not share this medicine with anyone. Selling or giving away this medicine is dangerous and against the law. Store at room temperature between 15 and 30 degrees C (59 and 86 degrees F). Protect from light. Keep container tightly closed. Throw away any unused medicine after the expiration date. Discard unused medicine and used packaging carefully. Pets and children can be harmed if they find used or lost packages. What should I tell my health care provider before I take this medicine? They need to know if you have any of these conditions: brain tumor Crohn's disease, inflammatory bowel disease, or ulcerative colitis drink more than 3 alcohol-containing drinks per day drug abuse or addiction head injury heart or circulation problems kidney disease or problems going to the bathroom liver disease lung disease, asthma, or breathing problems an unusual or allergic reaction to acetaminophen, hydrocodone, other opioid analgesics, other medicines, foods, dyes, or preservatives or trying to get breast-feeding What should I watch for while using this medicine? Tell your doctor or health professional healthcare representative if your pain does not go away, if it gets worse, or if you have new or a different type of pain. You may develop tolerance to the medicine. Tolerance means that you will need a higher dose of the medicine for pain relief. Tolerance is normal and is expected if you take the medicine for a long time. Do not suddenly stop taking your medicine because you may develop a severe reaction. Your body becomes used to the medicine. This does NOT mean you are addicted. Addiction is a behavior related to getting and using a drug for a non-medical reason. If you have pain, you have a medical reason to take pain medicine. Your doctor will tell you how much medicine to take. If your doctor wants you to stop the medicine, the dose will be slowly lowered over time to avoid any side effects. You may get drowsy or dizzy when you first start taking the medicine or change doses. Do not drive, use machinery, or do anything that may be dangerous until you know how the medicine affects you. Stand or sit up slowly. There are different types of narcotic medicines (opiates) for pain. If you take more than one type at the same time, you may have more side effects. Give your health care provider a list of all medicines you use. Your doctor will tell you how much medicine to take. Do not take more medicine than directed. Call emergency for help if you have problems breathing. The medicine will cause constipation. Try to have a bowel movement at least every 2 to 3 days. If you do not have a bowel movement for 3 days, call your doctor or health professional healthcare representative. Too much acetaminophen can be very dangerous. Do not take Tylenol (acetaminophen) or medicines that contain acetaminophen with this medicine. Many non-prescription medicines contain acetaminophen. Always read the labels carefully. Ondansetron Hydrochloride Oral tablet What is this medicine? ONDANSETRON (on KWADWO se ariella) is used to treat nausea and vomiting caused by chemotherapy. It is also used to prevent or treat nausea and vomiting after surgery. How should I use this medicine? Take this medicine by mouth with a glass of water. Follow the directions on your prescription label. Take your doses at regular intervals. Do not take your medicine more often than directed. Talk to your wire wrapper machine operator regarding the use of this medicine in children. Special care may be needed. What side effects may I notice from receiving this medicine? Side effects that you should report to your doctor or health professional healthcare representative as soon as possible: allergic reactions like skin rash, itching or hives, swelling of the face, lips or tongue breathing problems dizziness fast or irregular heartbeat feeling faint or lightheaded, falls fever and chills swelling of the hands or feet tightness in the chest Side effects that usually do not require medical attention (report to your doctor or health professional healthcare representative if they continue or are bothersome): constipation or diarrhea headache What may interact with this medicine? Do not take this medicine with any of the following medications: -apomorphine -cisapride -dofetilide -dronedarone -pimozide -thioridazine -ziprasidone This medicine may also interact with the following medications: -carbamazepine -phenytoin -rifampicin -tramadol -other medicines that prolong the QT interval (cause an abnormal heart rhythm) What if I miss a dose? If you miss a dose, take it as soon as you can. If it is almost time for your next dose, take only that dose. Do not take double or extra doses. Where should I keep my medicine? Keep out of the reach of children. Store between 2 and 30 degrees C (36 and 86 degrees F). Throw away any unused medicine after the expiration date. What should I tell my health care provider before I take this medicine? They need to know if you have any of these conditions: heart disease history of irregular heartbeat liver disease low levels of magnesium or potassium in the blood an unusual or allergic reaction to ondansetron, granisetron, other medicines, foods, dyes, or preservatives or trying to get breast-feeding What should I watch for while using this medicine? Check with your doctor or health professional healthcare representative right away if you have any sign of an allergic reaction. Ondansetron Oral disintegrating tablet What is this medicine? ONDANSETRON (on KWADWO se ariella) is used to treat nausea and vomiting caused by chemotherapy. It is also used to prevent or treat nausea and vomiting after surgery. How should I use this medicine? These tablets are made to dissolve in the mouth. Do not try to push the tablet through the foil backing. With dry hands, peel away the foil backing and gently remove the tablet. Place the tablet in the mouth and allow it to dissolve, then swallow. While you may take these tablets with water, it is not necessary to do so. Talk to your wire wrapper machine operator regarding the use of this medicine in children. Special care may be needed. What side effects may I notice from receiving this medicine? Side effects that you should report to your doctor or health professional healthcare representative as soon as possible: allergic reactions like skin rash, itching or hives, swelling of the face, lips, or tongue breathing problems dizziness fast or irregular heartbeat feeling faint or lightheaded, falls fever and chills swelling of the hands and feet tightness in the chest Side effects that usually do not require medical attention (report to your doctor or health professional healthcare representative if they continue or are bothersome): constipation or diarrhea headache What may interact with this medicine? Do not take this medicine with any of the following medications: -apomorphine -cisapride -dofetilide -dronedarone -pimozide -thioridazine -ziprasidone This medicine may also interact with the following medications: -carbamazepine -phenytoin -rifampicin -tramadol -other medicines that prolong the QT interval (cause an abnormal heart rhythm) What if I miss a dose? If you miss a dose, take it as soon as you can. If it is almost time for your next dose, take only that dose. Do not take double or extra doses. Where should I keep my medicine? Keep out of the reach of children. Store between 2 and 30 degrees C (36 and 86 degrees F). Throw away any unused medicine after the expiration date. What should I tell my health care provider before I take this medicine? They need to know if you have any of these conditions: heart disease history of irregular heartbeat liver disease low levels of magnesium or potassium in the blood an unusual or allergic reaction to ondansetron, granisetron, other medicines, foods, dyes, or preservatives or trying to get breast-feeding What should I watch for while using this medicine? Check with your doctor or health professional healthcare representative as soon as you can if you have any sign of an allergic reaction. You have been given the following additional information: Kidney Stone W/ Colic Bladder Infection, Female (Adult) Hydrocodone Bitartrate, Acetaminophen Oral tablet Ondansetron Hydrochloride Oral tablet Ondansetron Oral disintegrating tablet (Electronically signed by Alicja Oakse P.A.-C 02/27/2016 19:39)
--- NOTE | 2016-02-27 19:40 | ED MAR SUMMARY ---
..... Medication Administration Record [facility] [address] [place] [address] Patient: ADDIE PEARSON Visit ID: [id number] 25y, F Weight: 68.0 kg Height/Length: 66 in BMI: 24.2 ALLERGIES: No Known Drug Allergy Given 17:05 02/27/2016 Joleen Gallegos RFavio Medication Administered: TORADOL [IVP], Dose: 30 mg IVP over 2 minute(s), Site: #1 right AC. Medication Ordered: Toradol IV 30 mg (NOW). Given 17:07 02/27/2016 Joleen Gallegos RFavio Medication Administered: PHENERGAN [IVP] (PROMETHAZINE HCL), Dose: 12.5 mg IVP over 2 minute(s), Site: #1 right AC. Medication Ordered: Phenergan IV 12.5 mg (HIGH ALERT MEDICATION, NOW). Start 18:31 02/27/2016 Ayanna Lee,, Stop 19:34 02/27/2016 Ayanna Lee, Medication Administered: IV NS (SALINE), Dose: IV Fluids, Bolus: 1000 mL wide open, Dispensed: 1000 mL bag, Site: #1 right AC. Medication Ordered: IV NS : initial bolus 1000 mL (1000 mL/hr), then 100 mL/hr for X1 (NOW); Carlos. Start 18:32 02/27/2016 Ayanna Lee,, Stop 19:35 02/27/2016 Ayanna Lee, Medication Administered: CEFTRIAXONE [IVPB], Dose: 2 gm IVPB over 30 minute(s), Rate: 100 mL/hr, Dispensed: 50 mL bag, Site: #1 right AC. Medication Ordered: Ceftriaxone IV 2 gm/50mL (NOW).
--- NOTE | 2016-02-27 19:40 | ED MED RECONCILIATION SUMMARY ---
Patient: ADDIE PEARSON Medication Reconciliation Report [facility] VisitID: [id number] [place] [address] 25y, F Registration Date/Time: 02/27/2016 Weight: 68.0 kg Height/Length: 66 in. BMI: 24.2 ALLERGIES: No Known Drug Allergy The patient's Home Medications are listed below: THE FOLLOWING MEDICATIONS NEED TO BE RECONCILED: Naproxen Oral Tylenol Oral The source(s) of the original Home Medication information: Not obtained. The following Medications were given to the patient in the Emergency Department: Toradol [IVP] IVP 30 mg, administered: 02/27/2016 5:05:00 PM PHENERGAN [IVP] IVP 12.5 mg, administered: 02/27/2016 5:07:00 PM IV NS IV Fluids bolus 1000 mL wide open, administered: 02/27/2016 6:31:00 PM Ceftriaxone [IVPB] IVPB bolus 0, then 2 gm 100 mL/hr, administered: 02/27/2016 6:32:00 PM The following Medications were prescribed to the patient: Hydrocodone/APAP 5mg / 325mg: take 1 orally every 6 hours as needed for pain. Dispense fifteen (15). No refill. -- Alicja Oakes, P.A.-C Zofran (orally disintegrating tablets) 4 mg: take 1 orally every 6 hours for 3 days as needed for nausea. Dispense ten (10). No refill. Substitution is permissible. -- Alicja Oakes, P.A.-C Cephalexin 500 mg: take 1 capsule orally for 10 days. No refill. -- Alicja Oakes, P.A.-C Flomax 0.4 mg: take 1 orally every 24 hours. Dispense ten (10). No refills. -- Alicja Oakes, P.A.-C
--- NOTE | 2016-02-27 19:40 | ED MAR SUMMARY ---
..... Medication Administration Record [facility] [address] [place] [address] Patient: ADDIE PEARSON Visit ID: [id number] 25y, F Weight: 68.0 kg Height/Length: 66 in BMI: 24.2 ALLERGIES: No Known Drug Allergy Given 17:05 02/27/2016 Joleen Gallegos RFavio Medication Administered: TORADOL [IVP], Dose: 30 mg IVP over 2 minute(s), Site: #1 right AC. Medication Ordered: Toradol IV 30 mg (NOW). Given 17:07 02/27/2016 Joleen Gallegos RFavio Medication Administered: PHENERGAN [IVP] (PROMETHAZINE HCL), Dose: 12.5 mg IVP over 2 minute(s), Site: #1 right AC. Medication Ordered: Phenergan IV 12.5 mg (HIGH ALERT MEDICATION, NOW). Start 18:31 02/27/2016 Ayanna Lee,, Stop 19:34 02/27/2016 Ayanna Lee, Medication Administered: IV NS (SALINE), Dose: IV Fluids, Bolus: 1000 mL wide open, Dispensed: 1000 mL bag, Site: #1 right AC. Medication Ordered: IV NS : initial bolus 1000 mL (1000 mL/hr), then 100 mL/hr for X1 (NOW); Carlos. Start 18:32 02/27/2016 Ayanna Lee,, Stop 19:35 02/27/2016 Ayanna Lee, Medication Administered: CEFTRIAXONE [IVPB], Dose: 2 gm IVPB over 30 minute(s), Rate: 100 mL/hr, Dispensed: 50 mL bag, Site: #1 right AC. Medication Ordered: Ceftriaxone IV 2 gm/50mL (NOW).
== END 2016-02-27 19:35 | disposition home or self-care (01) ==
LOC: ED SRH 16:35
DX: N20.0 Calculus of kidney (principal); N39.0 Urinary tract infection, site not specified
CPT/HCPCS: 90004; 90074; 90100; 93070; 95059

== ENCOUNTER 2016-08-18 09:45 | Outpatient (CLI) | payer OTHER ==
--- NOTE | 2016-08-18 11:19 | DIAGNOSTIC IMAGING REPORT ---
PROCEDURE: CT ABDOMEN/PELVIS W/O CONTRAST INDICATION: URETHRAL STONE TECHNIQUE: Axial CT images were obtained through the abdomen and pelvis without IV contrast. Coronal and sagittal reformations were created. COMPARISON: Abdominal CT 02/27/2016 FINDINGS: There has been resolution of the mild right hydronephrosis and hydroureter secondary to a 2.5 mm calculus just above the right ureteral vesicle junction. There is a 0.5 mm nonobstructing calculus in the lower pole right kidney. There are two small 0.5 mm nonobstructing calculi in the mid lower pole left kidney. Left kidney and ureter are otherwise normal. Gallbladder, liver, spleen, pancreas, and aorta are normal. Bowel pattern is normal. Appendix is not clearly identified, but no evidence of inflammatory process. PELVIS: There is a 2.5 cm right paraovarian cyst (incidental finding) Uterus and adnexal structures are otherwise normal. No evidence of free fluid. IMPRESSION: 1. Resolution of the mild right hydronephrosis hydroureter secondary to a 2.5 mm calculus located just above the right ureteral vesicle junction. 2. There is a 0.5 mm nonobstructing calculus in the right kidney. 3. There are two 0.5 mm nonobstructing calculi in the left kidney. 4. There is a 2.5 cm right paraovarian cyst (incidental finding). All CT scans at this facility use dose modulation, iterative reconstruction, and/or weight-based dosing when appropriate to reduce radiation dose to as low as reasonably achievable.
== END 2016-08-18 23:00 ==
LOC: CT SRH 09:45
DX: N20.0 Calculus of kidney (principal); N83.201 Unspecified ovarian cyst, right side